=== PATIENT | male | born 1955 | race Caucasian/White ===

== ENCOUNTER 2023-09-24 16:17 | Inpatient (IN) | payer MEDICARE, SELFPAY ==
[~2023-09-24 16:17] MED LIST: Iopamidol-370 76% 500 ML MDV (1 ML CHARGE) ONE
[2023-09-24 16:52] LABS: #Basophils 0.1 thou/uL (0.0-0.2); #Eosinphils 0.1 thou/uL (0.0-0.7); #Monocytes 1.3 thou/uL (0.11-0.59); #Neutrophils 8.7 thou/uL (1.40-6.50); %Basophils 0.4 % (0.0-1.0); %Eosinophils 0.8 % (0.0-10.0); %Lymphocytes 11.8 % (21.0-51.0); %Monocytes 11.4 % (0.0-10.0); %Neutrophils 75.3 % (42.0-75.0); Hematocrit 39.7 % (42.0-52.0); Hemoglobin 13.2 g/dL (14.0-18.0); Mean Corpuscular HGB CONC 33.2 g/dL (32.0-36.0); Mean Corpuscular Hemoglobin 31.6 pg (27.0-31.0); Mean Platelet Volume 9.5 fL (7.4-10.4); Platelet Count 276 10x3/uL (130-400); RBC Distribution Width 13.1 % (11.5-14.5); Red Blood Cell (RBC) Count 4.18 mill/uL (4.70-6.10); White Blood Cell (WBC) Count 11.5 10x3/uL (4.8-10.8)
[2023-09-24 17:17] LABS: Acetaminophen Less than 10 mcg/mL (10.0-30.0); Alcohol Less than 10.0 mg/dL (Less than 10); Lipase 22 U/L (8-78); Salicylate Less than 8.0 mg/dL (15.0-30.0)
[2023-09-24 17:18] LABS: Troponin I 0.034 ng/mL (< 0.028)
[2023-09-24 17:19] LABS: ALT (SGPT) 11 U/L (8-55); AST (SGOT) 16 U/L (5-34); Albumin 4.2 g/dL (3.4-4.8); Alkaline Phosphatase 92 U/L (40-110); Anion Gap 19 mmol/L (10-20); BUN (Urea Nitrogen) 22 mg/dL (8.4-25.7); Bilirubin, Total 0.9 mg/dL (0.2-1.2); CK (CPK) 241 U/L (30-200); Calc. Creatinine Clearance 0 mL/min (70-130); Calcium 10.1 mg/dL (7.8-10.44); Carbon Dioxide 23 mmol/L (23-31); Chloride 101 mmol/L (98-107); Estimated GFR 83; Globulin 3.4 g/dL (2.4-3.5); Glucose 106 mg/dL (80-115); Potassium 4.6 mmol/L (3.5-5.1); Protein, Total 7.6 g/dL (5.8-8.1); Sodium 138 mmol/L (136-145)
[2023-09-24 17:22] LABS: PTT 28.7 sec (22.9-36.1)
[2023-09-24] MEDS ORDERED: Ondansetron ODT 4 MG TAB PO PRN (18:21)
[2023-09-24] MEDS ORDERED: hydrALAZINE 20 MG/ML VIAL SLOW IVP PRN (18:21)
[2023-09-24] MEDS ORDERED: Ondansetron PF 4 MG/2 ML Vial IVP PRN (18:21)
[2023-09-24] MEDS ORDERED: Acetaminophen 325 MG TAB PO PRN (18:21)
[2023-09-24 22:25] VITALS: BMI 16.5
[2023-09-24] MEDS: Atorvastatin Calcium 40 MG TAB PO SCH (23:02)
[2023-09-25] MEDS: Sodium Chloride 0.9% 1,000 ML IV SCH ×2 (02:26→16:09)
[2023-09-25 04:21] LABS: #Basophils 0.1 thou/uL (0.0-0.2); #Eosinphils 0.4 thou/uL (0.0-0.7); #Monocytes 1.1 thou/uL (0.11-0.59); #Neutrophils 5.6 thou/uL (1.40-6.50); %Basophils 0.8 % (0.0-1.0); %Lymphocytes 17.9 % (21.0-51.0); %Monocytes 12.1 % (0.0-10.0); %Neutrophils 63.9 % (42.0-75.0); Hematocrit 35.7 % (42.0-52.0); Hemoglobin 11.6 g/dL (14.0-18.0); Mean Corpuscular HGB CONC 32.5 g/dL (32.0-36.0); Mean Corpuscular Hemoglobin 31.4 pg (27.0-31.0); Mean Corpuscular Volume 96.7 fl (78.0-98.0); Mean Platelet Volume 9.5 fL (7.4-10.4); Platelet Count 257 10x3/uL (130-400); RBC Distribution Width 13.2 % (11.5-14.5); Red Blood Cell (RBC) Count 3.69 mill/uL (4.70-6.10); White Blood Cell (WBC) Count 8.8 10x3/uL (4.8-10.8)
[2023-09-25 04:28] LABS: Hemoglobin A1c 5.9 % (4.0-6.0)
[2023-09-25 04:49] LABS: Anion Gap 11 mmol/L (10-20); BUN (Urea Nitrogen) 17 mg/dL (8.4-25.7); Calc. Creatinine Clearance 71 mL/min (70-130); Calcium 9.2 mg/dL (7.8-10.44); Carbon Dioxide 23 mmol/L (23-31); Cardiac Risk 3.7 (Less than 4.5); Chloride 105 mmol/L (98-107); Cholesterol 159 mg/dl (< 200 Desired); Estimated GFR 95; Glucose 83 mg/dL (80-115); HDL Cholesterol 43 mg/dL (>60 Neg Risk); LDL Cholesterol, Calculated 99 mg/dL; Potassium 3.4 mmol/L (3.5-5.1); Sodium 136 mmol/L (136-145); Triglycerides 85 mg/dL (Less than 150)
[2023-09-25] MEDS: Aspirin 300 MG Suppository PR SCH (08:36)
[2023-09-25] MEDS ORDERED: FLU VACC QS2023(65UP)/MF59C/PF 60 MCG/0.5 ML SYRINGE IM ONE (09:00)
[2023-09-25] MEDS ORDERED: Aspirin 81 mg Enteric Coated Tablet PO SCH (09:00)
[2023-09-25 09:02] LABS: Free T4 (Free Thyroxine) 0.88 ng/dL (0.70-1.48)
[2023-09-25] MEDS: Enoxaparin 40 MG (0.4 mL) SYRINGE SC SCH (20:37)
[2023-09-25] MEDS: Atorvastatin Calcium 40 MG TAB PO SCH (21:48)
[2023-09-26] MEDS: Sodium Chloride 0.9% 1,000 ML IV SCH ×2 (03:17→16:38)
[2023-09-26] MEDS: Levothyroxine Sodium 25 MCG TAB PO SCH (05:04)
[2023-09-26 05:22] LABS: #Basophils 0.1 thou/uL (0.0-0.2); #Eosinphils 0.6 thou/uL (0.0-0.7); #Monocytes 0.9 thou/uL (0.11-0.59); #Neutrophils 5.7 thou/uL (1.40-6.50); %Eosinophils 6.5 % (0.0-10.0); %Lymphocytes 17.1 % (21.0-51.0); %Monocytes 9.7 % (0.0-10.0); %Neutrophils 65.4 % (42.0-75.0); Hematocrit 39.5 % (42.0-52.0); Hemoglobin 12.4 g/dL (14.0-18.0); Mean Corpuscular HGB CONC 31.4 g/dL (32.0-36.0); Mean Corpuscular Hemoglobin 31.2 pg (27.0-31.0); Mean Corpuscular Volume 99.2 fl (78.0-98.0); Mean Platelet Volume 9.5 fL (7.4-10.4); Platelet Count 232 10x3/uL (130-400); Red Blood Cell (RBC) Count 3.98 mill/uL (4.70-6.10); White Blood Cell (WBC) Count 8.8 10x3/uL (4.8-10.8)
[2023-09-26 05:49] LABS: Anion Gap 17 mmol/L (10-20); BUN (Urea Nitrogen) 22 mg/dL (8.4-25.7); Calc. Creatinine Clearance 74 mL/min (70-130); Carbon Dioxide 16 mmol/L (23-31); Chloride 109 mmol/L (98-107); Estimated GFR 97; Glucose 57 mg/dL (80-115); Potassium 3.9 mmol/L (3.5-5.1); Sodium 138 mmol/L (136-145)
[2023-09-26] MEDS ORDERED: Aspirin 325 MG TAB PO SCH (10:45)
[2023-09-26] MEDS: Aspirin 300 MG Suppository PR SCH (13:00)
[2023-09-26] MEDS: Atorvastatin Calcium 40 MG TAB PO SCH (20:09)
[2023-09-26] MEDS: Enoxaparin 40 MG (0.4 mL) SYRINGE SC SCH (20:19)
[2023-09-27] MEDS: Sodium Chloride 0.9% 1,000 ML IV SCH (03:48)
[2023-09-27 04:44] LABS: #Basophils 0.1 thou/uL (0.0-0.2); #Eosinphils 0.6 thou/uL (0.0-0.7); #Monocytes 0.9 thou/uL (0.11-0.59); #Neutrophils 5.8 thou/uL (1.40-6.50); %Basophils 0.8 % (0.0-1.0); %Lymphocytes 14.6 % (21.0-51.0); %Monocytes 10.6 % (0.0-10.0); %Neutrophils 66.7 % (42.0-75.0); Hematocrit 40.3 % (42.0-52.0); Mean Corpuscular HGB CONC 32.3 g/dL (32.0-36.0); Mean Corpuscular Hemoglobin 31.6 pg (27.0-31.0); Mean Corpuscular Volume 97.8 fl (78.0-98.0); Mean Platelet Volume 9.4 fL (7.4-10.4); Platelet Count 244 10x3/uL (130-400); RBC Distribution Width 12.7 % (11.5-14.5); Red Blood Cell (RBC) Count 4.12 mill/uL (4.70-6.10); White Blood Cell (WBC) Count 8.7 10x3/uL (4.8-10.8)
[2023-09-27 05:26] LABS: Anion Gap 15 mmol/L (10-20); BUN (Urea Nitrogen) 17 mg/dL (8.4-25.7); Calc. Creatinine Clearance 77 mL/min (70-130); Calcium 8.9 mg/dL (7.8-10.44); Carbon Dioxide 19 mmol/L (23-31); Chloride 106 mmol/L (98-107); Estimated GFR 98; Glucose 65 mg/dL (80-115); Potassium 3.8 mmol/L (3.5-5.1); Sodium 136 mmol/L (136-145)
[2023-09-27] MEDS: Levothyroxine Sodium 25 MCG TAB PO SCH (09:07)
[2023-09-27] MEDS: Aspirin 325 MG TAB PO SCH (09:08)
[2023-09-27] MEDS: Dextrose 5%-Lactated Ringers 1,000 ML IV SCH ×2 (10:45→20:09)
[2023-09-27] MEDS: Atorvastatin Calcium 40 MG TAB PO SCH (20:08)
[2023-09-27] MEDS: Enoxaparin 40 MG (0.4 mL) SYRINGE SC SCH (20:08)
[2023-09-28 05:05] LABS: #Basophils 0.1 thou/uL (0.0-0.2); #Eosinphils 0.2 thou/uL (0.0-0.7); #Monocytes 1.7 thou/uL (0.11-0.59); #Neutrophils 8.6 thou/uL (1.40-6.50); %Basophils 0.5 % (0.0-1.0); %Eosinophils 1.8 % (0.0-10.0); %Lymphocytes 9.7 % (21.0-51.0); %Monocytes 14.3 % (0.0-10.0); %Neutrophils 73.5 % (42.0-75.0); Hematocrit 39.7 % (42.0-52.0); Hemoglobin 13.3 g/dL (14.0-18.0); Mean Corpuscular HGB CONC 33.5 g/dL (32.0-36.0); Mean Corpuscular Hemoglobin 31.6 pg (27.0-31.0); Mean Corpuscular Volume 94.3 fl (78.0-98.0); Platelet Count 227 10x3/uL (130-400); RBC Distribution Width 12.8 % (11.5-14.5); Red Blood Cell (RBC) Count 4.21 mill/uL (4.70-6.10); White Blood Cell (WBC) Count 11.7 10x3/uL (4.8-10.8)
[2023-09-28] MEDS: Levothyroxine Sodium 25 MCG TAB PO SCH (06:00)
[2023-09-28 08:22] LABS: Anion Gap 12 mmol/L (10-20); BUN (Urea Nitrogen) 12 mg/dL (8.4-25.7); Calc. Creatinine Clearance 72 mL/min (70-130); Calcium 8.7 mg/dL (7.8-10.44); Carbon Dioxide 21 mmol/L (23-31); Chloride 104 mmol/L (98-107); Estimated GFR 96; Glucose 206 mg/dL (80-115); Potassium 3.9 mmol/L (3.5-5.1); Sodium 133 mmol/L (136-145)
[2023-09-28] MEDS: Amlodipine 5 MG TAB PER TUBE SCH (09:42)
[2023-09-28] MEDS: Aspirin 325 MG TAB PO SCH (09:42)
[2023-09-28] MEDS: Enoxaparin 40 MG (0.4 mL) SYRINGE SC SCH (20:10)
[2023-09-28] MEDS: Atorvastatin Calcium 40 MG TAB PO SCH (20:10)
[2023-09-29] MEDS: Aspirin 325 MG TAB PO SCH (11:09)
[2023-09-29] MEDS: Amlodipine 5 MG TAB PER TUBE SCH (11:10)
[2023-09-29] MEDS: Dextrose 5%-Lactated Ringers 1,000 ML IV SCH ×2 (11:10→11:13)
[2023-09-29] MEDS: Levothyroxine Sodium 25 MCG TAB PO SCH (11:13)
[2023-09-29] MEDS: Atorvastatin Calcium 40 MG TAB PO SCH (20:40)
[2023-09-29] MEDS: Enoxaparin 40 MG (0.4 mL) SYRINGE SC SCH (20:40)
[2023-09-30] MEDS: Levothyroxine Sodium 25 MCG TAB PO SCH (05:51)
[2023-09-30] MEDS: Dextrose 5%-Lactated Ringers 1,000 ML IV SCH ×4 (05:52→18:32)
[2023-09-30] MEDS: Aspirin 325 MG TAB PO SCH (10:11)
[2023-09-30] MEDS: Amlodipine 5 MG TAB PER TUBE SCH (10:11)
[2023-09-30] MEDS: Atorvastatin Calcium 40 MG TAB PO SCH (20:22)
[2023-10-01] MEDS: Levothyroxine Sodium 25 MCG TAB PO SCH (05:53)
[2023-10-01] MEDS: Dextrose 5%-Lactated Ringers 1,000 ML IV SCH ×2 (05:53→15:19)
[2023-10-01] MEDS ORDERED: Lidocaine 1% PF 5 ML VIAL ONE (07:36)
[2023-10-01] MEDS ORDERED: PROPOFOL 20 ML ONE (07:36)
[2023-10-01] MEDS: Amlodipine 5 MG TAB PER TUBE SCH (08:06)
[2023-10-01] MEDS: Aspirin 325 MG TAB PO SCH (08:06)
[2023-10-01] MEDS ORDERED: Ketamine In 0.9 % NaCl 50 MG/5 ML SYRINGE ONE (08:16)
[2023-10-01] MEDS ORDERED: CEFAZOLIN 1 GM VIAL ONE (08:18)
[2023-10-01] MEDS ORDERED: Pantoprazole 40 MG GRANULES PACKET PER TUBE SCH (10:45)
[2023-10-01] MEDS ORDERED: Lansoprazole 15 MG/5 ML (BATCHED)UDCUP PER TUBE SCH (11:00)
[2023-10-01] MEDS: Atorvastatin Calcium 40 MG TAB PO SCH (21:39)
[2023-10-02] MEDS: Levothyroxine Sodium 75 MCG TAB PO SCH (05:44)
[2023-10-02] MEDS: Dextrose 5%-Lactated Ringers 1,000 ML IV SCH ×2 (05:44→23:32)
[2023-10-02 06:39] LABS: #Basophils 0.1 thou/uL (0.0-0.2); #Eosinphils 0.6 thou/uL (0.0-0.7); #Monocytes 1.2 thou/uL (0.11-0.59); #Neutrophils 6.7 thou/uL (1.40-6.50); %Basophils 0.5 % (0.0-1.0); %Eosinophils 6.3 % (0.0-10.0); %Lymphocytes 13.5 % (21.0-51.0); %Monocytes 11.8 % (0.0-10.0); %Neutrophils 67.5 % (42.0-75.0); Hematocrit 41.6 % (42.0-52.0); Hemoglobin 13.3 g/dL (14.0-18.0); Mean Corpuscular Hemoglobin 31.4 pg (27.0-31.0); Mean Corpuscular Volume 98.1 fl (78.0-98.0); Mean Platelet Volume 10.2 fL (7.4-10.4); Platelet Count 275 10x3/uL (130-400); RBC Distribution Width 13.1 % (11.5-14.5); Red Blood Cell (RBC) Count 4.24 mill/uL (4.70-6.10)
[2023-10-02 06:59] LABS: Anion Gap 15 mmol/L (10-20); BUN (Urea Nitrogen) 13 mg/dL (8.4-25.7); Calc. Creatinine Clearance 72 mL/min (70-130); Calcium 9.3 mg/dL (7.8-10.44); Carbon Dioxide 23 mmol/L (23-31); Chloride 101 mmol/L (98-107); Estimated GFR 96; Glucose 118 mg/dL (80-115); Potassium 4.5 mmol/L (3.5-5.1); Sodium 134 mmol/L (136-145)
[2023-10-02] MEDS: Lansoprazole 15 MG/5 ML (BATCHED)UDCUP PER TUBE SCH (09:39)
[2023-10-02] MEDS: Amlodipine 5 MG TAB PER TUBE SCH (09:39)
[2023-10-02] MEDS: Aspirin 325 MG TAB PO SCH (09:40)
[2023-10-02] MEDS: Atorvastatin Calcium 40 MG TAB PO SCH (20:29)
[2023-10-02] MEDS: Enoxaparin 40 MG (0.4 mL) SYRINGE SC SCH (20:29)
[2023-10-03] MEDS: Levothyroxine Sodium 75 MCG TAB PO SCH (05:34)
[2023-10-03] MEDS: Lansoprazole 15 MG/5 ML (BATCHED)UDCUP PER TUBE SCH (08:44)
[2023-10-03] MEDS: Amlodipine 5 MG TAB PER TUBE SCH (08:44)
[2023-10-03] MEDS: Aspirin 325 MG TAB PO SCH (08:44)
[2023-10-03] MEDS: Dextrose 5%-Lactated Ringers 1,000 ML IV SCH (12:57)
[2023-10-03] MEDS: Atorvastatin Calcium 40 MG TAB PO SCH (20:20)
[2023-10-03] MEDS: Enoxaparin 40 MG (0.4 mL) SYRINGE SC SCH (20:21)
[2023-10-04] MEDS: Levothyroxine Sodium 75 MCG TAB PO SCH (05:55)
[2023-10-04] MEDS: Lansoprazole 15 MG/5 ML (BATCHED)UDCUP PER TUBE SCH (09:32)
[2023-10-04] MEDS: Amlodipine 5 MG TAB PER TUBE SCH (09:32)
[2023-10-04] MEDS: Aspirin 325 MG TAB PO SCH (09:32)
[2023-10-04] MEDS: Atorvastatin Calcium 40 MG TAB PO SCH (22:37)
[2023-10-04] MEDS: Enoxaparin 40 MG (0.4 mL) SYRINGE SC SCH (22:37)
[2023-10-05 05:40] LABS: #Basophils 0.1 thou/uL (0.0-0.2); #Eosinphils 0.6 thou/uL (0.0-0.7); #Neutrophils 5.4 thou/uL (1.40-6.50); %Basophils 0.9 % (0.0-1.0); %Eosinophils 6.6 % (0.0-10.0); %Lymphocytes 21.1 % (21.0-51.0); Hematocrit 42.6 % (42.0-52.0); Hemoglobin 13.7 g/dL (14.0-18.0); Mean Corpuscular HGB CONC 32.2 g/dL (32.0-36.0); Mean Corpuscular Volume 96.4 fl (78.0-98.0); Mean Platelet Volume 10.1 fL (7.4-10.4); Platelet Count 286 10x3/uL (130-400); RBC Distribution Width 12.8 % (11.5-14.5); Red Blood Cell (RBC) Count 4.42 mill/uL (4.70-6.10); White Blood Cell (WBC) Count 8.9 10x3/uL (4.8-10.8)
[2023-10-05] MEDS: Levothyroxine Sodium 75 MCG TAB PO SCH (05:48)
[2023-10-05 06:05] LABS: Anion Gap 12 mmol/L (10-20); BUN (Urea Nitrogen) 21 mg/dL (8.4-25.7); Calc. Creatinine Clearance 72 mL/min (70-130); Calcium 9.3 mg/dL (7.8-10.44); Carbon Dioxide 26 mmol/L (23-31); Chloride 101 mmol/L (98-107); Estimated GFR 96; Glucose 99 mg/dL (80-115); Sodium 135 mmol/L (136-145)
[2023-10-05] MEDS: Lansoprazole 15 MG/5 ML (BATCHED)UDCUP PER TUBE SCH (09:52)
[2023-10-05] MEDS: Amlodipine 5 MG TAB PER TUBE SCH (09:53)
[2023-10-05] MEDS: Aspirin 325 MG TAB PO SCH (09:53)
[2023-10-05] MEDS: Atorvastatin Calcium 40 MG TAB PO SCH (21:58)
[2023-10-05] MEDS: Enoxaparin 40 MG (0.4 mL) SYRINGE SC SCH (21:58)
[2023-10-06 05:41] LABS: #Basophils 0.1 thou/uL (0.0-0.2); #Eosinphils 0.5 thou/uL (0.0-0.7); #Monocytes 0.8 thou/uL (0.11-0.59); %Basophils 0.9 % (0.0-1.0); %Eosinophils 6.2 % (0.0-10.0); %Lymphocytes 21.9 % (21.0-51.0); %Monocytes 9.3 % (0.0-10.0); %Neutrophils 61.3 % (42.0-75.0); Hematocrit 40.5 % (42.0-52.0); Hemoglobin 13.4 g/dL (14.0-18.0); Mean Corpuscular HGB CONC 33.1 g/dL (32.0-36.0); Mean Corpuscular Hemoglobin 31.3 pg (27.0-31.0); Mean Corpuscular Volume 94.6 fl (78.0-98.0); Platelet Count 302 10x3/uL (130-400); RBC Distribution Width 12.8 % (11.5-14.5); Red Blood Cell (RBC) Count 4.28 mill/uL (4.70-6.10); White Blood Cell (WBC) Count 8.1 10x3/uL (4.8-10.8)
[2023-10-06] MEDS: Levothyroxine Sodium 75 MCG TAB PO SCH (06:00)
[2023-10-06 06:04] LABS: Anion Gap 12 mmol/L (10-20); BUN (Urea Nitrogen) 29 mg/dL (8.4-25.7); Calc. Creatinine Clearance 68 mL/min (70-130); Calcium 9.1 mg/dL (7.8-10.44); Carbon Dioxide 25 mmol/L (23-31); Chloride 103 mmol/L (98-107); Estimated GFR 94; Glucose 101 mg/dL (80-115); Potassium 4.2 mmol/L (3.5-5.1); Sodium 136 mmol/L (136-145)
[2023-10-06] MEDS: Amlodipine 5 MG TAB PER TUBE SCH (09:51)
[2023-10-06] MEDS: Lansoprazole 15 MG/5 ML (BATCHED)UDCUP PER TUBE SCH (09:51)
[2023-10-06] MEDS: Aspirin 325 MG TAB PO SCH (09:51)
[2023-10-06] MEDS: Enoxaparin 40 MG (0.4 mL) SYRINGE SC SCH (20:40)
[2023-10-06] MEDS: Atorvastatin Calcium 40 MG TAB PO SCH (20:40)
[2023-10-07] MEDS: Levothyroxine Sodium 75 MCG TAB PO SCH (05:52)
[2023-10-07 06:35] LABS: #Basophils 0.1 thou/uL (0.0-0.2); #Eosinphils 0.6 thou/uL (0.0-0.7); #Monocytes 0.9 thou/uL (0.11-0.59); #Neutrophils 4.9 thou/uL (1.40-6.50); %Basophils 0.8 % (0.0-1.0); %Eosinophils 6.9 % (0.0-10.0); %Lymphocytes 21.8 % (21.0-51.0); %Monocytes 10.7 % (0.0-10.0); %Neutrophils 59.3 % (42.0-75.0); Hematocrit 40.9 % (42.0-52.0); Hemoglobin 13.3 g/dL (14.0-18.0); Mean Corpuscular HGB CONC 32.5 g/dL (32.0-36.0); Mean Corpuscular Hemoglobin 31.1 pg (27.0-31.0); Mean Corpuscular Volume 95.8 fl (78.0-98.0); Mean Platelet Volume 9.9 fL (7.4-10.4); Platelet Count 306 10x3/uL (130-400); RBC Distribution Width 12.7 % (11.5-14.5); Red Blood Cell (RBC) Count 4.27 mill/uL (4.70-6.10); White Blood Cell (WBC) Count 8.3 10x3/uL (4.8-10.8)
[2023-10-07 07:06] LABS: Anion Gap 13 mmol/L (10-20); BUN (Urea Nitrogen) 29 mg/dL (8.4-25.7); Calc. Creatinine Clearance 66 mL/min (70-130); Calcium 9.3 mg/dL (7.8-10.44); Carbon Dioxide 27 mmol/L (23-31); Chloride 102 mmol/L (98-107); Estimated GFR 93; Glucose 104 mg/dL (80-115); Potassium 4.8 mmol/L (3.5-5.1); Sodium 137 mmol/L (136-145)
[2023-10-07] MEDS: Aspirin 325 MG TAB PO SCH (09:47)
[2023-10-07] MEDS: Lansoprazole 15 MG/5 ML (BATCHED)UDCUP PER TUBE SCH (09:48)
[2023-10-07] MEDS: Amlodipine 5 MG TAB PER TUBE SCH (09:48)
[2023-10-07] MEDS: Enoxaparin 40 MG (0.4 mL) SYRINGE SC SCH (21:07)
[2023-10-07] MEDS: Atorvastatin Calcium 40 MG TAB PO SCH (21:07)
[2023-10-08 05:49] LABS: #Basophils 0.1 thou/uL (0.0-0.2); #Eosinphils 0.6 thou/uL (0.0-0.7); #Monocytes 0.9 thou/uL (0.11-0.59); #Neutrophils 5.2 thou/uL (1.40-6.50); %Basophils 0.8 % (0.0-1.0); %Eosinophils 7.3 % (0.0-10.0); %Lymphocytes 20.5 % (21.0-51.0); %Monocytes 10.8 % (0.0-10.0); %Neutrophils 60.3 % (42.0-75.0); Hematocrit 40.1 % (42.0-52.0); Hemoglobin 13.1 g/dL (14.0-18.0); Mean Corpuscular HGB CONC 32.7 g/dL (32.0-36.0); Mean Platelet Volume 10.2 fL (7.4-10.4); Platelet Count 305 10x3/uL (130-400); RBC Distribution Width 12.6 % (11.5-14.5); Red Blood Cell (RBC) Count 4.22 mill/uL (4.70-6.10); White Blood Cell (WBC) Count 8.6 10x3/uL (4.8-10.8)
[2023-10-08 06:13] LABS: Anion Gap 13 mmol/L (10-20); BUN (Urea Nitrogen) 27 mg/dL (8.4-25.7); Calc. Creatinine Clearance 70 mL/min (70-130); Calcium 8.9 mg/dL (7.8-10.44); Carbon Dioxide 27 mmol/L (23-31); Chloride 102 mmol/L (98-107); Estimated GFR 95; Glucose 108 mg/dL (80-115); Potassium 4.5 mmol/L (3.5-5.1); Sodium 137 mmol/L (136-145)
[2023-10-08] MEDS: Levothyroxine Sodium 75 MCG TAB PO SCH (06:17)
[2023-10-08] MEDS: Amlodipine 5 MG TAB PER TUBE SCH (08:00)
[2023-10-08] MEDS: Aspirin 325 MG TAB PO SCH (08:00)
[2023-10-08] MEDS: Lansoprazole 15 MG/5 ML (BATCHED)UDCUP PER TUBE SCH (08:04)
[2023-10-08] MEDS: Enoxaparin 40 MG (0.4 mL) SYRINGE SC SCH (21:17)
[2023-10-08] MEDS: Atorvastatin Calcium 40 MG TAB PO SCH (21:18)
[2023-10-09] MEDS: Levothyroxine Sodium 75 MCG TAB PO SCH (05:27)
[2023-10-09] MEDS: Amlodipine 5 MG TAB PER TUBE SCH (10:31)
[2023-10-09] MEDS: Aspirin 325 MG TAB PO SCH (10:31)
[2023-10-09] MEDS: Lansoprazole 15 MG/5 ML (BATCHED)UDCUP PER TUBE SCH (10:32)
[2023-10-09] MEDS: Atorvastatin Calcium 40 MG TAB PO SCH (20:43)
[2023-10-09] MEDS: Enoxaparin 40 MG (0.4 mL) SYRINGE SC SCH (20:43)
[2023-10-10] MEDS: Levothyroxine Sodium 75 MCG TAB PO SCH (05:03)
[2023-10-10] MEDS: Amlodipine 5 MG TAB PER TUBE SCH (10:00)
[2023-10-10] MEDS: Aspirin 325 MG TAB PO SCH (10:13)
[2023-10-10] MEDS: Lansoprazole 15 MG/5 ML (BATCHED)UDCUP PER TUBE SCH (10:14)
[2023-10-10 15:53] VITALS: BP 103/74; TEMP 97
== END 2023-10-10 18:30 | disposition swing bed (61) | DRG 64 ==
LOC: ERS 16:17 → 2SE 18:00 → OBSVTOIN 09-25 14:32
PROVIDERS: ADMIT Hospitalist; ATTEND Internal Medicine
PROC: 0DH63UZ Insertion of Feeding Device into Stomach, Percutaneous Approach (ICD-10-PCS; principal; 2023-10-01)
DX: I63.512 Cerebral infarction due to unspecified occlusion or stenosis of left middle cerebral artery (principal); G93.41 Metabolic encephalopathy; E44.0 Moderate protein-calorie malnutrition; Z68.1 Body mass index [BMI] 19.9 or less, adult; G45.9 Transient cerebral ischemic attack, unspecified; E87.1 Hypo-osmolality and hyponatremia; R47.01 Aphasia; I10 Essential (primary) hypertension; Z79.82 Long term (current) use of aspirin; Z79.899 Other long term (current) drug therapy; Z90.49 Acquired absence of other specified parts of digestive tract; F17.210 Nicotine dependence, cigarettes, uncomplicated; E03.8 Other specified hypothyroidism; Z51.5 Encounter for palliative care; K29.70 Gastritis, unspecified, without bleeding; R13.12 Dysphagia, oropharyngeal phase
CPT/HCPCS: 36415; 36416; 70450; 70496; 70498; 70551; 74018; 74230; 80048; 80053; 80061; 80307; 82550; 83036; 83690; 84439; 84443; 84481; 84484; 85025; 85610; 85730; 90471; 90694; 93005; 93306; 94760; 96360; G0008; G0378; J0690; J1650; J2704; J3490; J7050; Q9967